=== PATIENT | female | born 1965 ===

== ENCOUNTER 2025-04-28 07:00 | Day surgery (SDC) | payer OTHER ==
[2025-04-21 10:25] VITALS: BP 133/84
[~2025-04-28] VITALS: Ht 157.5 cm; Wt 55.3 kg
[~2025-04-28 07:00] MED LIST: CLONAZEPAM0.5 MG PO; MIRTAZAPINE15 M1 PO; RESTORIL30 MG PO
[2025-04-28] MEDS ORDERED: DEXAMETHASONE SODIUM PHOSPHATE 4 MG/ML VIAL ONE (10:21)
== END 2025-04-28 17:40 | disposition home or self-care (01) ==
LOC: SURH 07:00 → O/R 07:00 → CIR.AMB 07:00 → EDSTATUS 11:15 → SURH 11:15 → CIR.AMB 17:40 → O/R 17:40
PROVIDERS: ATTEND Surgery
DX: D35.1 Benign neoplasm of parathyroid gland (principal); E21.0 Primary hyperparathyroidism